=== PATIENT | male | born 1990 | race Caucasian/White ===

== ENCOUNTER 2019-12-05 22:52 | Emergency (ER) | payer OTHER ==
[~2019-12-05] VITALS: Ht 167.6 cm; Wt 56.7 kg
[2019-12-05 23:31] VITALS: BP 140/93; Ht 167.6 cm; Wt 56.7 kg
== END 2019-12-06 00:12 | disposition left against medical advice (07) ==
LOC: ED 22:52
DX: Z53.21 Procedure and treatment not carried out due to patient leaving prior to being seen by health care provider (principal)

== ENCOUNTER 2020-10-17 02:52 | Emergency (ER) | payer OTHER ==
[~2020-10-17] VITALS: Ht 167.6 cm; Wt 57.3 kg
[2020-10-17 03:01] VITALS: Ht 167.6 cm; Wt 57.3 kg
[2020-10-17 05:08] VITALS: BP 142/99
== END 2020-10-17 05:08 | disposition home or self-care (01) ==
LOC: ED 02:52
DX: K02.9 Dental caries, unspecified (principal); F17.210 Nicotine dependence, cigarettes, uncomplicated